=== PATIENT | female | born 1960 | race Caucasian/White ===

== ENCOUNTER 2018-11-07 10:36 | Emergency (ER) | payer OTHER, BC ==
[2018-11-07 10:43] VITALS: BP 150/75
--- NOTE | 2018-11-07 11:02 | EDM.PDOC ---
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 As she was pushing the cart out of the van, the ramp was not up, the cart started to fall and she attempted to grab the cart. The weight of the cart pulled her out of the van onto the ground. The patient reports pain in her right hand, right elbow , right shoulder and both knees. The patient has bruising to her right hand, right elbow, right proximal humerus and swelling to her right knee. The patient has abrasions to her right hand, right elbow and right knee. The patient also has some small superficial lacerations to her right hand. Onset: Today Duration: Minutes: Location: Reports: Upper Extremity, Right, Lower Extremity, Right Quality: Reports: Ache, Dull Severity: Moderate Improves with: Reports: None Worsens with: Reports: None Context: Reports: Other Associated Symptoms: Reports: No Other Symptoms Bilateral Knee Pain Score (Numeric/FACES): 4 Right Elbow Pain Score (Numeric/FACES): 9 - Related Data Allergies Allergy/AdvReac Type Severity Reaction Status Date / Time penicillin Allergy Cannot Verified 11/07/18 10:40 Remember Home Meds: Home Meds Aspirin [Ecotrin] 81 mg PO DAILY 03/10/15 [History] FLUoxetine [PROzac] 10 mg PO DAILY 03/10/15 [History] Lisinopril 20 mg PO BEDTIME 03/10/15 [History] Omeprazole 20 mg PO ONETIME 03/10/15 [History] glipiZIDE [Glipizide Xl] 5 mg PO DAILY 03/10/15 [History] metFORMIN [Glucophage] 850 mg PO TIDMEALS 03/10/15 [History] Past Medical History - Past Health History Medical/Surgical History: Denies Medical/Surgical History HEENT History: Reports: Impaired Vision Cardiovascular History: Reports: High Cholesterol, Hypertension 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: Musculoskeletal History: Reports: Other (See Below) Other Musculoskeletal History: hx of right wrist fx Endocrine/Metabolic History: Reports: Diabetes, Type II - Past Surgical History Female Surgical History: Reports: Tubal Ligation Musculoskeletal Surgical History: Reports: Other (See Below) Other Musculoskeletal Surgeries/Procedures:: right wrist surgery Social & Family History - Tobacco Use Smoking Status *Q: Never Smoker - Caffeine Use Caffeine Use: Reports: None - Recreational Drug Use Recreational Drug Use: No ED ROS GENERAL - Review of Systems Review Of Systems: ROS reveals no pertinent complaints other than HPI. ED EXAM, GENERAL - Physical Exam Exam: See Below Exam Limited By: No Limitations General Appearance: Alert, WD/WN, Mild Distress Eye Exam: Bilateral Eye: EOMI, Normal Inspection, PERRL Ears: Normal External Exam, Normal Canal, Hearing Grossly Normal, Normal TMs Nose: Normal Inspection Throat/Mouth: Normal Inspection, Normal Lips, Normal Teeth, Normal Gums, Normal Oropharynx, Normal Voice, No Airway Compromise Head: Atraumatic, Normocephalic Neck: Normal Inspection, Supple, Non-Tender, Full Range of Motion Respiratory/Chest: No Respiratory Distress, Lungs Clear, Normal Breath Sounds, No Accessory Muscle Use, Chest Non-Tender Cardiovascular: Normal Peripheral Pulses, Regular Rate, Rhythm, No Edema, No Gallop, No JVD, No Murmur, No Rub GI/Abdominal: Normal Bowel Sounds (Female) Exam: Deferred Rectal (Female) Exam: Deferred Back Exam: Normal Inspection, Full Range of Motion Extremities: Arm Pain (right hand, right elbow and right upper arm), Leg Pain ( bilateral knee pain due to fall) Neurological: Alert, Oriented, CN II-XII Intact, Normal Cognition, Normal Gait, Normal Reflexes, No Motor/Sensory Deficits Psychiatric: Normal Affect, Normal Mood Skin Exam: Warm, Dry, Intact, Normal Color, No Rash Lymphatic: No Adenopathy Course - Vital Signs Last Recorded V/S: Last Vital Signs Temp 36.7 C 11/07/18 10:40 Pulse 84 11/07/18 10:40 Resp 18 11/07/18 10:40 BP 150/75 H 11/07/18 10:40 Pulse Ox 96 11/07/18 10:40 - Orders/Labs/Meds Orders: Active Orders 24 hr Category Date Time Status Knee 1V or 2V Lt [CR] Urgent Exams 11/07/18 11:02 Ordered Knee Standing AP Bi [CR] Urgent Exams 11/07/18 10:51 Ordered DME for Discharge [COMM] Urgent Oth 11/07/18 11:16 Ordered Departure - Departure Time of Disposition: 11:17 Disposition: Home, Self-Care 01 Condition: Fair Clinical Impression: Contusion of right hand Qualifiers: Encounter type: initial encounter Qualified Code(s): S60.221A - Contusion of right hand, initial encounter Contusion of right elbow Qualifiers: Encounter type: initial encounter Qualified Code(s): S50.01XA - Contusion of right elbow, initial encounter Contusion of right upper arm Qualifiers: Encounter type: initial encounter Qualified Code(s): S40.021A - Contusion of right upper arm, initial encounter Contusion of right knee Qualifiers: Encounter type: initial encounter Qualified Code(s): S80.01XA - Contusion of right knee, initial encounter Contusion of left knee Qualifiers: Encounter type: initial encounter Qualified Code(s): S80.02XA - Contusion of left knee, initial encounter Fall Qualifiers: Encounter type: initial encounter Qualified Code(s): W19.XXXA - Unspecified fall, initial encounter - Discharge Information *PRESCRIPTION DRUG MONITORING PROGRAM REVIEWED*: Not Applicable *COPY OF PRESCRIPTION DRUG MONITORING REPORT IN PATIENT [place]: Not Applicable Instructions: Contusion, [id number] Forms: ED Department Discharge Care Plan Goals: The patient was advised of the examination and x-ray results during the visit. The patient's right arm was placed in a sling for temporary immobilization. The patient was encouraged to rest, ice and elevate the areas of injury. The patient may take Tylenol or ibuprofen for temporary symptom relief. If the patient has any additional symptoms or concerns, the patient should either return to the emergency department or visit her primary care facility. - My Orders Last 24 Hours: My Active Orders 11/07/18 10:51 Knee Standing AP Bi [CR] Urgent 11/07/18 11:02 Knee 1V or 2V Lt [CR] Urgent 11/07/18 11:16 DME for Discharge [COMM] Urgent - Assessment/Plan Last 24 Hours: My Active Orders 11/07/18 10:51 Knee Standing AP Bi [CR] Urgent 11/07/18 11:02 Knee 1V or 2V Lt [CR] Urgent 11/07/18 11:16 DME for Discharge [COMM] Urgent
--- NOTE | 2018-11-07 11:09 | CR ---
Clinical history: 58-year-old female injured fall. Interpretation: Longitudinally placed surgical screw distal end of the right ulna. Old healed distal radial fracture deformity. Homogeneous age/degenerative appropriate bone mineral density. No sign of acute long bone fracture. No dislocation right elbow or wrist.
--- NOTE | 2018-11-07 11:10 | CR ---
Clinical history: 58-year-old female injured fall. Interpretation: 3 views right hand confirm old trauma and open orthopedic fixation distal radial/ulnar styloid (screw) fractures. No acute fracture or dislocation right hand. 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
--- NOTE | 2018-11-07 11:11 | CR ---
Clinical history: 58-year-old female injured fall. Interpretation: AP lateral right humerus unremarkable. Homogeneous age and gender appropriate bone mineral density. No sign of pathologic skeletal lesion, long bone humeral fracture or right shoulder/elbow joint dislocation. No foreign bodies.
--- NOTE | 2018-11-07 11:14 | CR ---
Clinical history: 58-year-old female injured in fall (right greater than left). Interpretation: AP standing knees and lateral views of both knees reveal early arthritic changes. (Mary Lou-Stieda, on the left) No joint effusion, knee fracture, dislocation or radiopaque loose joint body (benign fabella, posteriorly both knees).
== END 2018-11-07 11:33 | disposition home or self-care (01) ==
LOC: DL.ED 10:36
DX: S60.221A Contusion of right hand, initial encounter (principal); S50.01XA Contusion of right elbow, initial encounter; S40.021A Contusion of right upper arm, initial encounter; S80.01XA Contusion of right knee, initial encounter; S80.02XA Contusion of left knee, initial encounter; I10 Essential (primary) hypertension; E11.9 Type 2 diabetes mellitus without complications; E78.00 Pure hypercholesterolemia, unspecified; Z79.82 Long term (current) use of aspirin; Z79.84 Long term (current) use of oral hypoglycemic drugs; Z88.0 Allergy status to penicillin; W19.XXXA Unspecified fall, initial encounter; Y99.0 Civilian activity done for income or pay
CPT/HCPCS: 73060-RT; 73090-RT; 73130-RT; 73560-LT; 73560-RT; 73565; 99284-25